=== PATIENT | male | born 1955 | race Caucasian/White ===

== ENCOUNTER 2018-03-16 10:23 | Observation (INO) ==
[2018-03-16] MEDS ORDERED: Sod Chloride 0.9% Inj 1,000 ML IV.SIG ONE ×2 (11:00→12:07)
--- NOTE | 2018-03-16 11:34 | ED ---
HPI General Chief complaint: Nausea/Vomiting/Diarrhea Stated complaint: N/V/weakness Time Seen by Provider: 03/16/18 10:59 Source: patient Mode of arrival: EMS Limitations: no limitations History of Present Illness HPI Narrative: 62-year-old male presents the ED for evaluation of approximate 10 -hour history of acute nausea and vomiting. Patient states that he went to bed feeling well, woke up around 5 AM with multiple episodes of nonbloody vomiting. He endorses 1 episode of watery diarrhea. He states that he currently feels a little dizzy. He denies headache, fever, chills, chest pain, palpitations, shortness of breath, abdominal pain, dysuria, hematuria, back pain. He denies sick contacts. He states he is otherwise healthy, takes no daily medications. He denies alcohol use or cigarette smoking. He endorses smoking marijuana daily for 30 years. Related Data Home Medications Medication Instructions Recorded Confirmed No Known Home Medications 03/16/18 03/16/18 Previous Rx's Medication Instructions Recorded ondansetron [Zofran ODT] 4 mg PO Q8H 2 Days #6 tab 03/16/18 Allergies Allergy/AdvReac Type Severity Reaction Status Date / Time penicillin G Allergy Severe unknown Verified 03/16/18 10:49 aspirin AdvReac Severe Gastrointestinal Verified 03/16/18 10:49 Upset SHELLFISH Allergy Unknown FAMILY Uncoded 07/28/05 12:30 ALLERGY Review of Systems ROS: all other systems reviewed are negative PMFSH Medical History Medical History Broken back (Acute) Hemorrhoid (Acute) Kidney stones (Acute) Surgical History Surgical History History of lithotripsy (Acute) Social History Social History Substance History: No History of Abuse Smoking Status: Former smoker How Often Do You Have a Drink Containing Alcohol: Never Recent Travel in [place] within the Last 8 Weeks: No Recent Out of Country Travel within the Last 8 Weeks: No Substance Abuse Detail Marijuana: Substance Use Status: Active Route Used Substance Abuse: Inhalation Immunization History Tetanus Immunization: Unsure Exam Narrative Exam Narrative: GENERAL: Well-nourished, well-developed white male in no acute distress. SKIN: Focused skin assessment warm/dry. HEAD: Atraumatic. Normocephalic. EYES: Pupils equal and round. No scleral icterus. No injection or drainage. ENT: No nasal bleeding or discharge. Mucous membranes pink and moist. NECK: Trachea midline. No JVD. CARDIOVASCULAR: Regular rate and rhythm. No murmur appreciated. RESPIRATORY: No accessory muscle use. Clear to auscultation. Breath sounds equal bilaterally. GASTROINTESTINAL: Abdomen soft, non-tender, nondistended. Hepatic and splenic margins not palpable. MUSCULOSKELETAL: No obvious deformities. No clubbing. No cyanosis. No edema. NEUROLOGICAL: Awake and alert. No obvious cranial nerve deficits. Motor grossly within normal limits. Normal speech. PSYCHIATRIC: Appropriate mood and affect; insight and judgment normal. Course Initial Documented Vital Signs Temperature 98.6 F 03/16/18 10:49 Pulse Rate 68 03/16/18 10:49 Respiratory Rate 17 03/16/18 10:49 Blood Pressure 130/68 03/16/18 10:49 Pulse Oximetry 98 03/16/18 10:49 Last Documented Vital Signs Temperature 98.6 F 03/16/18 10:49 Pulse Rate 63 03/16/18 14:31 Respiratory Rate 12 03/16/18 14:31 Blood Pressure 133/70 03/16/18 14:31 Pulse Oximetry 100 03/16/18 14:31 Medical Decision Making MDM Narrative Medical decision making narrative: 62-year-old male presents the ED for evaluation of acute onset nausea and vomiting starting at 5 AM today. Patient states that he was feeling well before onset of these symptoms. Denies sick contacts. Afebrile, vital stable on arrival. Physical exam unremarkable. Patient was administered a liter normal saline, a dose of Zofran IV. Of note he was administered Zofran in route by EMS. On recheck patient continues to complain of nausea and vomiting. He was administered IV Compazine, p.o. Benadryl. Lab work without acute abnormalities. Patient was administered a second liter normal saline. Nausea and vomiting continues. He was administered 1 mg Ativan. Still no improvement of his nausea and vomiting. Plan to observe for intractable nausea and vomiting, possibly caused by cannabinoid hyperemesis. Patient agreeable to the plan. I spoke with Dr. Tucker who agrees to accept the patient to the medicine service. Please see medicine notes for disposition. Medical Screen Exam Complete: Yes Emergency Medical Condition: Yes Differential Diagnosis Differential Diagnosis: Food poisoning versus cannabinoid hyperemesis versus gastritis versus metabolic derangement versus dehydration versus other Lab Data Result diagrams: 03/16/18 11:05 03/16/18 11:05 Lab Results 03/16/18 03/16/18 03/16/18 Range/Units 11:05 11:05 14:24 WBC 7.2 (4.0-11.0) th/mm3 RBC 4.49 L (4.50-5.90) mil/mm3 Hgb 14.3 (13.0-17.0) gm/dL Hct 42.5 (39.0-51.0) % MCV 94.8 (80.0-100.0) fL MCH 31.9 (27.0-34.0) pg MCHC 33.6 (32.0-36.0) % RDW 13.6 (11.6-17.2) % Plt Count 269 (150-450) th/mm3 MPV 8.1 (7.0-11.0) fL Neut % (Auto) 86.2 H (16.0-70.0) % Lymph % (Auto) 9.8 (9.0-44.0) % Stokes % (Auto) 3.8 (0.0-8.0) % Eos % (Auto) 0.0 (0.0-4.0) % Baso % (Auto) 0.2 (0.0-2.0) % Neut # (Auto) 6.2 (1.8-7.7) th/mm3 Lymph # (Auto) 0.7 L (1.0-4.8) th/mm3 Stokes # (Auto) 0.3 (0.0-0.9) th/mm3 Eos # (Auto) 0.0 (0.0-0.4) th/mm3 Baso # (Auto) 0.0 (0.0-0.2) th/mm3 WBC Differential . Differential Comment Auto diff final Sodium 142 (136-145) meq/L Potassium 3.8 (3.5-5.1) meq/L Chloride 107 (98-107) meq/L Carbon Dioxide 27.0 (21.0-32.0) meq/L Anion Gap 8 (5-15) meq/L BUN 11 (7-18) mg/dL Creatinine 1.09 (0.60-1.30) mg/dL Estimated GFR 68 L (>89) mL/min Random Glucose 114 H (74-106) mg/dL Calcium 8.3 L (8.5-10.1) mg/dL Magnesium 2.0 (1.5-2.5) mg/dL Total Bilirubin 0.5 (0.2-1.0) mg/dL AST 19 (15-37) U/L ALT 15 (12-78) U/L Alkaline Phosphatase 61 (45-117) U/L Total Protein 7.1 (6.4-8.2) g/dL Albumin 3.4 (3.4-5.0) g/dL Lipase 194 (73-393) U/L Urine Color Yellow (Yellw/Straw) Urine Clarity Hazy H (Clear) Urine pH 8.0 (5.0-8.5) Ur Specific [place] 1.008 (1.002-1.035) Urine Protein Negative (Neg-Trace) mg/dL Urine Glucose (UA) Negative (Negative) mg/dL Urine Ketones Trace H (Negative) mg/dL Urine Occult Blood Small H (Negative) Urine Nitrate Negative (Negative) Urine Bilirubin Negative (Negative) Urine Urobilinogen Less than 2 (Less than 2) mg/dL Ur Leukocyte Esterase Negative (Negative) Urine RBC 2 (0-3) /hpf Urine WBC 2 (0-5) /hpf Ur Squamous Epith Cells <1 (0-5) /hpf Micro UA Comment Culture not ind Ur Microscopic Review Not Reportable Urine Culture Comments Culture not ind Serum Alcohol Less than 3 (0-5) mg/dL Discharge Plan Discharge Disposition Patient Disposition: 30 Still Patient Discharge Condition Condition: Stable Physicians Team ED Provider: Nazario Wu ED Midlevel Provider: Clarisa Bass Primary Care Provider: Primary Care Xiao Block Rxs /Orders / Referrals /Forms Prescriptions: New ondansetron [Zofran ODT] 4 mg tablet,disintegrating 4 mg PO Q8H 2 Days Qty: 6 RF: 0 No Action No Known Home Medications RF: 0 Referrals: [facility] [Outside] - Call for Appointment Status ED Status: Admitted Observation Patient
[2018-03-16 11:47] LABS: Baso % (Auto) 0.2 % (0.0-2.0); Hematocrit 42.5 % (39.0-51.0); Hemoglobin 14.3 gm/dL (13.0-17.0); Lymph # (Auto) 0.7 th/mm3 (1.0-4.8); Lymph % (Auto) 9.8 % (9.0-44.0); Mean Corpuscular HGB Conc 33.6 % (32.0-36.0); Mean Corpuscular Hemoglobin 31.9 pg (27.0-34.0); Mean Corpuscular Volume 94.8 fL (80.0-100.0); Mean Platelet Volume 8.1 fL (7.0-11.0); Mono # (Auto) 0.3 th/mm3 (0.0-0.9); Mono % (Auto) 3.8 % (0.0-8.0); Neut # (Auto) 6.2 th/mm3 (1.8-7.7); Neut % (Auto) 86.2 % (16.0-70.0); Platelet Count 269 th/mm3 (150-450); Red Blood Count 4.49 mil/mm3 (4.50-5.90); Red Cell Distribution Width 13.6 % (11.6-17.2); White Blood Count 7.2 th/mm3 (4.0-11.0)
[2018-03-16 11:58] LABS: Alanine Aminotransferase 15 U/L (12-78)
[2018-03-16 12:00] LABS: Alkaline Phosphatase 61 U/L (45-117); Total Protein 7.1 g/dL (6.4-8.2)
[2018-03-16 12:01] LABS: Albumin 3.4 g/dL (3.4-5.0); Anion Gap 8 meq/L (5-15); Aspartate Aminotransferase 19 U/L (15-37); Blood Urea Nitrogen 11 mg/dL (7-18); Calcium 8.3 mg/dL (8.5-10.1); Chloride 107 meq/L (98-107); Glomerular Filtration Rate 68 mL/min (>89); Glucose,Random 114 mg/dL (74-106); Lipase 194 U/L (73-393); Potassium 3.8 meq/L (3.5-5.1); Sodium 142 meq/L (136-145)
[2018-03-16 15:06] LABS: Bilirubin,Urine Negative (Negative); Clarity,Urine Hazy (Clear); Color,Urine Yellow (Yellw/Straw); Glucose,Urine (UA) Negative (Negative); Leukocyte Esterase,Urine Negative (Negative); Nitrite,Urine Negative (Negative); Specific Gravity,Urine 1.008 (1.002-1.035); Squamous Epithelial Cell,Urine <1 /hpf (0-5)
--- NOTE | 2018-03-16 15:39 | P.HPFP ---
History of Present Illness Primary Care Physician: No Primary Care Physician <Alexandro Krause - 03/17/18 13:49> No Primary Care Physician <Vandaan Tucker - 03/16/18 15:39> Chief Complaint: "I'm nauseous" <Vandana Tucker - 03/16/18 16:55> History of Present Illness: 62 y/o M presenting w/intractable nausea and vomiting. Patient states that this AM, he awoke w/dizziness upon standing. Denies pre- syncope symptoms or falls. States that he then started vomiting and that he vomited about 15 times today. Last meal was the night before. States that he ate a restaurant, had a sabillon and tomato sandwich. When out with other people who subsequently did not become ill like he did. States that he had a brief episode of diarrhea. Denies blood in his vomit or stools. Denies fevers or chills. No weight loss, change in appetite, vision changes, or difficulty swallowing.. States that he currently does have a headache that is on the top and back part of his head. Denies photosensitivity. States that he still has dizziness which appears when he changes positions. Currently not nauseous, reports that this resolved after last dose of medication (IV Benadryl). No recent illnesses. Does not follow-up with the P regularly due to insurance reasons. Has no medical conditions that he is aware of. Has had operations/surgery in the past. Does not take any medications. Denies family history of any medical problems. Denies smoking or alcohol use but does smoke marijuana daily. <Vandana Tucker - 03/16/18 16:55> - Diagnosis (1) Intractable nausea and vomiting (2) Headache (3) Dizziness <Vandana Tucker 03/16/18 16:55> Review of Systems Constitutional: Denies fatigue, Denies weakness <Vandana Tucker 03/16/18 16: 55> Eyes: Denies blurry vision, Denies loss of vision <Vandana Tucker 03/16/18 16 :55> Ears, Nose, Mouth, and Throat: Reports neck lump (Denies tenderness.), Denies mouth pain, Denies tongue swelling <Vandana Tucker 03/16/18 16:55> Cardiovascular: Denies chest pain, Denies leg pain with activity, Denies shortness of breath <[facility] 03/16/18 16:55> Respiratory: Denies change in phlegm color, Denies cough, Denies wheezing < [facility] 03/16/18 16:55> Gastrointestinal: Denies abdominal pain, Denies cramping, Denies loose stools [facility]> Genitourinary: Denies urinary frequency, Denies urinary hesitancy <[facility] Vandana 03/16/18 16:55> Musculoskeletal: Denies abnormal walking, Denies joint pain <[facility] 03/16/18 16:55> Neurologic: Denies confusion, Denies fainting <[facility] 03/16/18 16:55> Endocrine: Denies cold intolerance, Denies excessive sweating, Denies rapid, pounding, or irregular heartbeat <[facility] 03/16/18 16:55> PMF - History History Provided By: Patient, Medical Record, Body Presser / EMT <Vandana Tucker 03/16/18 15:39> - Medical History Medical History: Medical History (Last Reviewed 03/16/18 @ 11:59 by NAKIA Camargo) Broken back Hemorrhoid Kidney stones <Alexandro Krause - 03/17/18 13:49> Medical History (Last Reviewed 03/16/18 @ 11:59 by NAKIA Camargo) Broken back Hemorrhoid Kidney stones <Vandana Tucker 03/16/18 15:39> - Surgical History Surgical History: Surgical History (Last Reviewed 03/16/18 @ 11:59 by NAKIA Camargo) History of lithotripsy <Alexandro Krause - 03/17/18 13:49> Surgical History (Last Reviewed 03/16/18 @ 11:59 by NAKIA Camargo) History of lithotripsy <Vandana Tucker 03/16/18 15:39> - Tobacco History Smoking Status: Former smoker <Vandana Tucker 03/16/18 15:39> - Alcohol History How Often Do You Have a Drink Containing Alcohol: Never <Vandana Tucker - 03/16 15:39> - Substance Use History Substance History: No History of Abuse <Vandana Tucker - 03/16/18 15:39> - Substance Use Type Marijuana Status: Active <Vandana Tucker N - 03/16/18 15:39> Route Used: Inhalation <Vandana Tucker - 03/16/18 15:39> - Travel History Recent Travel in the [facility] Within the Last 8 Weeks: No <Vandana Tucker - 15:39> Recent Travel Out of the Country Within the Last 8 Weeks: No <Vandana Tucker - 03/16/18 15:39> - Immunization History Tetanus Immunization: Unsure <Vandana Tucker - 03/16/18 15:39> Medications and Allergies Allergies Allergy/AdvReac Type Severity Reaction Status Date / Time penicillin G Allergy Severe unknown Verified 03/16/18 10:49 aspirin AdvReac Severe Gastrointestinal Verified 03/16/18 10:49 Upset SHELLFISH Allergy Unknown FAMILY Uncoded 07/28/05 12:30 ALLERGY <Alexandro Krause - 03/17/18 13:49> Home Medications Medication Instructions Recorded Confirmed Type No Known Home Medications 03/16/18 03/16/18 History <Alexandro Krause - 03/17/18 13:49> Active Medications: Active Medications Acetaminophen (Tylenol) 650 mg PO Q4H PRN PRN Reason: PAIN 1-10 OR TEMP > 100.4 F Al Hydroxide/Mg Hydroxide (Milk Of Magnesia Liq) 30 ml PO Q12H PRN PRN Reason: Mild Constipation Bisacodyl (Dulcolax Supp) 10 mg RECTAL DAILY PRN PRN Reason: SEVERE CONSITIPATION Diphenhydramine HCl (Benadryl Inj) 25 mg IV.PUSH Q4H PRN PRN Reason: NAUSEA Lactulose (Lactulose Liq) 30 ml PO DAILY PRN PRN Reason: SEVERE CONSITIPATION Metoclopramide HCl (Reglan Inj) 5 mg IV.PUSH Q6HR PRN; Protocol PRN Reason: NAUSEA OR VOMITING Ondansetron HCl (Zofran Inj) 4 mg IV.PUSH Q6H PRN PRN Reason: NAUSEA OR VOMITING Sennosides (Senokot) 17.2 mg PO Q12H PRN PRN Reason: Moderate Constipation Sodium Chloride (Ns Flush) 2 ml IV.FLUSH PRN PRN PRN Reason: FLUSH AFTER USING IV ACCESS <Alexandro Krause - 03/17/18 13:49> Active Medications Sodium Chloride (Ns Flush) 2 ml IV.FLUSH PRN PRN PRN Reason: FLUSH AFTER USING IV ACCESS <Vandana Tucker - 03/16/18 15:39> Exam Vital signs: Vital Signs 03/16/18 14:31 03/16/18 16:50 03/16/18 20:00 Temperature 97.8 F 98.2 F Pulse Rate 63 72 76 Respiratory Rate 12 20 16 Blood Pressure 133/70 123/64 115/57 L Pulse Oximetry 100 97 100 03/16/18 23:47 03/17/18 04:00 03/17/18 08:00 Temperature 98.0 F 98.5 F 97.8 F Pulse Rate 77 84 77 Respiratory Rate 20 20 16 Blood Pressure 116/61 122/65 123/60 Pulse Oximetry 97 97 97 03/17/18 12:00 Temperature 97.5 F L Pulse Rate 65 Respiratory Rate 16 Blood Pressure 125/67 Pulse Oximetry 98 Intake & Output 03/16/18 03/17/18 03/17/18 18:59 06:59 18:59 Intake Total 1999 1000 / 1000 675 / 675 Balance 1999 1000 / 1000 675 / 675 Weight 61.235 kg Intake: IV 1999 1000 / 1000 675 / 675 LR 1000 mL Inj 1,000 ML @ 100 1000 / 1000 675 / 675 mls/hr IV.CONT .Q10H JANAE Rx#: [id number] NS Inj 1,000 ML @ Wide Open IV. 1999 SIG BOLUS ONE Rx#:[id number] <Alexandro Krause - 03/17/18 13:49> Vital Signs 03/16/18 10:49 03/16/18 14:31 Temperature 98.6 F Pulse Rate 68 63 Respiratory Rate 17 12 Blood Pressure 130/68 133/70 Pulse Oximetry 98 100 Intake & Output 03/15/18 03/16/18 03/16/18 18:59 06:59 18:59 Intake Total 1999 Balance 1999 Weight 61.235 kg Intake: IV 1999 NS Inj 1,000 ML @ Wide Open IV. 1999 SIG BOLUS ONE Rx#:[id number] <Vandana Tucker N - 03/16/18 15:39> Narrative: GENERAL: Thin, cachectic older male lying in bed looking fatigued. Is pale and disheveled. SKIN: Warm and dry. Enlarged lymph node about 1 inch in diameter at the right upper neck. HEAD: Atraumatic. Normocephalic. EYES: Pupils equal and round. ENT: No nasal bleeding or discharge. Mucous membranes dry. NECK: Trachea midline. No JVD. CARDIOVASCULAR: Regular rate and rhythm. RESPIRATORY: No accessory muscle use. Clear to auscultation. Breath sounds equal bilaterally. GASTROINTESTINAL: Abdomen soft, non-tender, nondistended. Hepatic and splenic margins not palpable. MUSCULOSKELETAL: Extremities without clubbing, cyanosis, or edema. NEUROLOGICAL: Awake and alert. No obvious cranial nerve deficits. Motor grossly within normal limits. Five out of 5 muscle strength in the arms and legs. Normal speech. PSYCHIATRIC: Appropriate mood and affect; insight and judgment normal. <AriellaVandana david N - 03/16/18 16:55> Results - Labs Result diagrams: 03/17/18 06:26 03/17/18 06:26 <Alexandro Krause - 03/17/18 13:49> Abnormal lab results 03/16/18 03/16/18 03/17/18 Range/Units 11:05 14:24 06:26 RBC 3.95 L (4.50-5.90) mil/mm3 Hgb 12.7 L (13.0-17.0) gm/dL Hct 37.5 L (39.0-51.0) % Sodium (136-145) meq/L Potassium (3.5-5.1) meq/L Chloride (98-107) meq/L Estimated GFR (>89) mL/min Calcium (8.5-10.1) mg/dL AST (15-37) U/L ALT (12-78) U/L Total Protein (6.4-8.2) g/dL Albumin (3.4-5.0) g/dL Urine Clarity Hazy H (Clear) Urine Ketones Trace H (Negative) mg/dL Urine Occult Blood Small H (Negative) Acetaminophen Less than 2.0 L (10.0-30.0) mcg/mL 03/17/18 Range/Units 06:26 RBC (4.50-5.90) mil/mm3 Hgb (13.0-17.0) gm/dL Hct (39.0-51.0) % Sodium 147 H (136-145) meq/L Potassium 3.4 L (3.5-5.1) meq/L Chloride 112 H (98-107) meq/L Estimated GFR 84 L (>89) mL/min Calcium 8.2 L (8.5-10.1) mg/dL AST 13 L (15-37) U/L ALT 11 L (12-78) U/L Total Protein 5.9 L D (6.4-8.2) g/dL Albumin 2.9 L (3.4-5.0) g/dL Urine Clarity (Clear) Urine Ketones (Negative) mg/dL Urine Occult Blood (Negative) Acetaminophen (10.0-30.0) mcg/mL Short CBC 03/17/18 Range/Units 06:26 WBC 7.8 (4.0-11.0) th/mm3 Hgb 12.7 L (13.0-17.0) gm/dL Hct 37.5 L (39.0-51.0) % Plt Count 240 (150-450) th/mm3 BMP 03/17/18 06:26 Sodium 147 H Potassium 3.4 L Chloride 112 H Carbon Dioxide 28.0 BUN 11 Creatinine 0.91 Calcium 8.2 L Liver Function 03/17/18 Range/Units 06:26 Total Bilirubin 0.4 (0.2-1.0) mg/dL AST 13 L (15-37) U/L ALT 11 L (12-78) U/L Alkaline Phosphatase 49 (45-117) U/L Albumin 2.9 L (3.4-5.0) g/dL Urine 03/16/18 Range/Units 14:24 Urine Color Yellow (Yellw/Straw) Urine Clarity Hazy H (Clear) Urine pH 8.0 (5.0-8.5) Ur Specific [place] 1.008 (1.002-1.035) Urine Protein Negative (Neg-Trace) mg/dL Urine Glucose (UA) Negative (Negative) mg/dL <Alexandro Krause - 03/17/18 13:49> Abnormal lab results 03/16/18 03/16/18 03/16/18 Range/Units 11:05 11:05 14:24 RBC 4.49 L (4.50-5.90) mil/mm3 Neut % (Auto) 86.2 H (16.0-70.0) % Lymph # (Auto) 0.7 L (1.0-4.8) th/mm3 Estimated GFR 68 L (>89) mL/min Random Glucose 114 H (74-106) mg/dL Calcium 8.3 L (8.5-10.1) mg/dL Urine Clarity Hazy H (Clear) Urine Ketones Trace H (Negative) mg/dL Urine Occult Blood Small H (Negative) Short CBC 03/16/18 Range/Units 11:05 WBC 7.2 (4.0-11.0) th/mm3 Hgb 14.3 (13.0-17.0) gm/dL Hct 42.5 (39.0-51.0) % Plt Count 269 (150-450) th/mm3 BMP 03/16/18 11:05 Sodium 142 Potassium 3.8 Chloride 107 Carbon Dioxide 27.0 BUN 11 Creatinine 1.09 Calcium 8.3 L Liver Function 03/16/18 Range/Units 11:05 Total Bilirubin 0.5 (0.2-1.0) mg/dL AST 19 (15-37) U/L ALT 15 (12-78) U/L Alkaline Phosphatase 61 (45-117) U/L Albumin 3.4 (3.4-5.0) g/dL Urine 03/16/18 Range/Units 14:24 Urine Color Yellow (Yellw/Straw) Urine Clarity Hazy H (Clear) Urine pH 8.0 (5.0-8.5) Ur Specific [place] 1.008 (1.002-1.035) Urine Protein Negative (Neg-Trace) mg/dL Urine Glucose (UA) Negative (Negative) mg/dL <Vandana Tucker - 03/16/18 15:39> - Imaging Impressions Head CT 03/16/18 00:00 CONCLUSION: 1. Negative noncontrast head CT. . <Alexandro Krause - 03/17/18 13:49> Caprini VTE Risk Assessment Caprini VTE Risk Assessment: Moderate/High Risk (score >= 2) <Vandana Tucker - 03/16/18 16:55> Vaughni Risk Assessment Model: Point Value = 1 Point Value = 2 Point Value = 3 Point Value = 5 Age 41-60 Minor surgery BMI > 25 kg/m2 Swollen legs Varicose veins or History of unexplained or recurrent spontaneous Oral contraceptives or hormone replacement Sepsis (< 1 month) Serious lung disease, including pneumonia (< 1 month) Abnormal pulmonary function Acute myocardial infarction Congestive heart failure (< 1 month) History of inflammatory bowel disease Medical patient at bed rest Age 61-74 Arthroscopic surgery Major open surgery (> 45 min) Laparoscopic surgery (> 45 min) Malignancy Confined to bed (> 72 hours) Immobilizing plaster cast Central venous access Age >= 75 History of VTE Family history of VTE Factor V Leiden Prothrombin [id number] Lupus anticoagulant Anticardiolipin antibodies Elevated serum homocysteine Heparin-induced thrombocytopenia Other congenital or acquired thrombophilia Stroke (< 1 month) Elective arthroplasty Hip, pelvis, or leg fracture Acute spinal cord injury (< 1 month) <Alexandro Krause - 03/17/18 13:49> Point Value = 1 Point Value = 2 Point Value = 3 Point Value = 5 Age 41-60 Minor surgery BMI > 25 kg/m2 Swollen legs Varicose veins or History of unexplained or recurrent spontaneous Oral contraceptives or hormone replacement Sepsis (< 1 month) Serious lung disease, including pneumonia (< 1 month) Abnormal pulmonary function Acute myocardial infarction Congestive heart failure (< 1 month) History of inflammatory bowel disease Medical patient at bed rest Age 61-74 Arthroscopic surgery Major open surgery (> 45 min) Laparoscopic surgery (> 45 min) Malignancy Confined to bed (> 72 hours) Immobilizing plaster cast Central venous access Age >= 75 History of VTE Family history of VTE Factor V Leiden Prothrombin [id number] Lupus anticoagulant Anticardiolipin antibodies Elevated serum homocysteine Heparin-induced thrombocytopenia Other congenital or acquired thrombophilia Stroke (< 1 month) Elective arthroplasty Hip, pelvis, or leg fracture Acute spinal cord injury (< 1 month) <Vandana Tucker - 03/16/18 15:39> Prophylaxis Regimen: Total Risk Factor Score Risk Level Prophylaxis Regimen 0-1 Low Early ambulation 2 Moderate Order ONE of the following: *Sequential Compression Device (SCD) *Heparin 5000 units SQ BID 3-4 Higher Order ONE of the following medications: *Heparin 5000 units SQ TID *Enoxaparin/Lovenox 40 mg SQ daily (WT < 150 kg, CrCl > 30 mL/min) *Enoxaparin/Lovenox 30 mg SQ daily (WT < 150 kg, CrCl > 10-29 mL/min) *Enoxaparin/Lovenox 30 mg SQ BID (WT < 150 kg, CrCl > 30 mL/min) AND/OR *Sequential Compression Device (SCD) 5 or more Highest Order ONE of the following medications: *Heparin 5000 units SQ TID (Preferred with Epidurals) *Enoxaparin/Lovenox 40 mg SQ daily (WT < 150 kg, CrCl > 30 mL/min) *Enoxaparin/Lovenox 30 mg SQ daily (WT < 150 kg, CrCl > 10-29 mL/min) *Enoxaparin/Lovenox 30 mg SQ BID (WT < 150 kg, CrCl > 30 mL/min) AND *Sequential Compression Device (SCD) <Alexandro Krause - 03/17/18 13:49> Total Risk Factor Score Risk Level Prophylaxis Regimen 0-1 Low Early ambulation 2 Moderate Order ONE of the following: *Sequential Compression Device (SCD) *Heparin 5000 units SQ BID 3-4 Higher Order ONE of the following medications: *Heparin 5000 units SQ TID *Enoxaparin/Lovenox 40 mg SQ daily (WT < 150 kg, CrCl > 30 mL/min) *Enoxaparin/Lovenox 30 mg SQ daily (WT < 150 kg, CrCl > 10-29 mL/min) *Enoxaparin/Lovenox 30 mg SQ BID (WT < 150 kg, CrCl > 30 mL/min) AND/OR *Sequential Compression Device (SCD) 5 or more Highest Order ONE of the following medications: *Heparin 5000 units SQ TID (Preferred with Epidurals) *Enoxaparin/Lovenox 40 mg SQ daily (WT < 150 kg, CrCl > 30 mL/min) *Enoxaparin/Lovenox 30 mg SQ daily (WT < 150 kg, CrCl > 10-29 mL/min) *Enoxaparin/Lovenox 30 mg SQ BID (WT < 150 kg, CrCl > 30 mL/min) AND *Sequential Compression Device (SCD) <Vandana Tucker - 03/16/18 15:39> Assessment and Plan - Assessment (1) Intractable nausea and vomiting Code(s): R11.2 - Nausea with vomiting, unspecified Status: Acute Plan: Differential: gastroenteritis v Cyclical vomiting from marijuana use versus tumor/cancer v intracranial bleed versus gastroparesis versus pancreatitis IV fluids at maintenance rate IV Zofran, IV Reglan, and IV Benadryl for nausea. May be administered in this order for vomiting that continues to be intractable. Patient seems to be responding to IV Benadryl as he states that he feels better since his last medication administration of that. EKG will be performed to rule out prolonged QT We will perform CT of the head to rule out intracranial abnormality Order lipase and A1c Monitor clinically, recheck in the morning (2) Headache Code(s): R51 - Headache Status: Acute Plan: See above plan Tylenol as needed for pain (3) Dizziness <Vandana Tucker - 03/16/18 16:55> - Assessment and Plan Fluids: Maintenance Electrolytes: as needed Nutrition: NPO. Give diet once patient feels ready DVT prophy: SCDs, caprini score is moderate GI prophy: None <Vandana Tucker - 03/16/18 16:55> - Attending Attestation See the residents documentation for details. I saw and evaluated the patient regarding the hayward portions of this evaluation and agree with the residents findings and plans as written. Parts of this note were created using [employer] voice recognition software program. While efforts were made to correct any mistakes made by this software, some mistakes, errors, and omissions may remain in the final note that were not caught when the note was originally created. Plan of care was discussed and agreed upon with the patient as specifically documented in the above note. An opportunity to ask questions with explanation was provided. Patient voiced understanding on all information reviewed and discussed. <Alexandro Krause - 03/17/18 13:49>
[2018-03-16] MEDS ORDERED: Acetaminophen 325 MG Tablet PO PRN (16:25)
[2018-03-16] MEDS ORDERED: Bisacodyl 10 MG Supp RECTAL PRN (16:25)
--- NOTE | 2018-03-16 19:09 | CT ---
EXAM DATE: 03/16/2018 7:05 PM EDT AGE/SEX: 62 years / Male INDICATIONS: Dizziness CLINICAL DATA: This is the patient's initial encounter. Patient reports that signs and symptoms have been present for 1 day and indicates a pain score of 2/10. MEDICAL/SURGICAL HISTORY: None. None. RADIATION DOSE: 66.38 CTDI (mGy) COMPARISON: No prior exams available for comparison. TECHNIQUE: CT of the head without contrast. Using automated exposure control and adjustment of the mA and/or kV according to patient size, radiation dose was kept as low as reasonably achievable to ob tain optimal diagnostic quality images. DICOM format image data is available electronically for revi ew and comparison. FINDINGS: Cerebrum: The ventricles are normal for age. No evidence of midline shift, mass lesion, hemorrhage or acute infarction. No extraaxial fluid collections are seen. Posterior Fossa: The cerebellum and brainstem are intact. The 4th ventricle is midline. The cerebe llopontine angle is unremarkable. Extracranial: The visualized portion of the orbits is intact. Skull: The calvaria is intact. No evidence of skull fracture. CONCLUSION: 1. Negative noncontrast head CT. . Electronically signed by: Gato Lopez MD 03/16/2018 7:08 PM EDT
[2018-03-17 06:50] LABS: Baso % (Auto) 0.3 % (0.0-2.0); Eos % (Auto) 0.3 % (0.0-4.0); Hematocrit 37.5 % (39.0-51.0); Hemoglobin 12.7 gm/dL (13.0-17.0); Lymph # (Auto) 1.9 th/mm3 (1.0-4.8); Lymph % (Auto) 23.7 % (9.0-44.0); Mean Corpuscular HGB Conc 33.8 % (32.0-36.0); Mean Corpuscular Hemoglobin 32.1 pg (27.0-34.0); Mean Corpuscular Volume 94.9 fL (80.0-100.0); Mean Platelet Volume 7.7 fL (7.0-11.0); Mono # (Auto) 0.5 th/mm3 (0.0-0.9); Mono % (Auto) 6.3 % (0.0-8.0); Neut # (Auto) 5.4 th/mm3 (1.8-7.7); Neut % (Auto) 69.4 % (16.0-70.0); Platelet Count 240 th/mm3 (150-450); Red Blood Count 3.95 mil/mm3 (4.50-5.90); Red Cell Distribution Width 13.7 % (11.6-17.2); White Blood Count 7.8 th/mm3 (4.0-11.0)
[2018-03-17 07:09] LABS: Albumin 2.9 g/dL (3.4-5.0); Anion Gap 7 meq/L (5-15); Aspartate Aminotransferase 13 U/L (15-37); Blood Urea Nitrogen 11 mg/dL (7-18); Calcium 8.2 mg/dL (8.5-10.1); Chloride 112 meq/L (98-107); Glomerular Filtration Rate 84 mL/min (>89); Glucose,Random 88 mg/dL (74-106); Potassium 3.4 meq/L (3.5-5.1); Sodium 147 meq/L (136-145)
[2018-03-17 07:12] LABS: Alanine Aminotransferase 11 U/L (12-78); Alkaline Phosphatase 49 U/L (45-117); Total Protein 5.9 g/dL (6.4-8.2)
[2018-03-17 11:27] LABS: Hemoglobin A1c 5.3 % (4.3-6.0)
--- NOTE | 2018-03-17 12:12 | P.PNFP ---
Subjective Interval history: Vitals stable overnight. No episodes of nausea, feels ok to eat this morning. Feels some dizziness when he sits up in bed, has not walked around yet. Lingering headache is still there, but no new changes. <Vandana Tucker - 03/17/18 12:12> Results - Labs Result diagrams: 03/17/18 06:26 03/17/18 06:26 <Alexandro Krause - 03/17/18 14:05> Abnormal lab results 03/16/18 03/16/18 03/17/18 Range/Units 11:05 14:24 06:26 RBC 3.95 L (4.50-5.90) mil/mm3 Hgb 12.7 L (13.0-17.0) gm/dL Hct 37.5 L (39.0-51.0) % Sodium (136-145) meq/L Potassium (3.5-5.1) meq/L Chloride (98-107) meq/L Estimated GFR (>89) mL/min Calcium (8.5-10.1) mg/dL AST (15-37) U/L ALT (12-78) U/L Total Protein (6.4-8.2) g/dL Albumin (3.4-5.0) g/dL Urine Clarity Hazy H (Clear) Urine Ketones Trace H (Negative) mg/dL Urine Occult Blood Small H (Negative) Acetaminophen Less than 2.0 L (10.0-30.0) mcg/mL 03/17/18 Range/Units 06:26 RBC (4.50-5.90) mil/mm3 Hgb (13.0-17.0) gm/dL Hct (39.0-51.0) % Sodium 147 H (136-145) meq/L Potassium 3.4 L (3.5-5.1) meq/L Chloride 112 H (98-107) meq/L Estimated GFR 84 L (>89) mL/min Calcium 8.2 L (8.5-10.1) mg/dL AST 13 L (15-37) U/L ALT 11 L (12-78) U/L Total Protein 5.9 L D (6.4-8.2) g/dL Albumin 2.9 L (3.4-5.0) g/dL Urine Clarity (Clear) Urine Ketones (Negative) mg/dL Urine Occult Blood (Negative) Acetaminophen (10.0-30.0) mcg/mL Short CBC 03/17/18 Range/Units 06:26 WBC 7.8 (4.0-11.0) th/mm3 Hgb 12.7 L (13.0-17.0) gm/dL Hct 37.5 L (39.0-51.0) % Plt Count 240 (150-450) th/mm3 BMP 03/17/18 06:26 Sodium 147 H Potassium 3.4 L Chloride 112 H Carbon Dioxide 28.0 BUN 11 Creatinine 0.91 Calcium 8.2 L Liver Function 03/17/18 Range/Units 06:26 Total Bilirubin 0.4 (0.2-1.0) mg/dL AST 13 L (15-37) U/L ALT 11 L (12-78) U/L Alkaline Phosphatase 49 (45-117) U/L Albumin 2.9 L (3.4-5.0) g/dL Urine 03/16/18 Range/Units 14:24 Urine Color Yellow (Yellw/Straw) Urine Clarity Hazy H (Clear) Urine pH 8.0 (5.0-8.5) Ur Specific [place] 1.008 (1.002-1.035) Urine Protein Negative (Neg-Trace) mg/dL Urine Glucose (UA) Negative (Negative) mg/dL <Alexandro Krause - 03/17/18 14:05> Abnormal lab results 03/16/18 03/16/18 03/17/18 Range/Units 11:05 14:24 06:26 RBC 3.95 L (4.50-5.90) mil/mm3 Hgb 12.7 L (13.0-17.0) gm/dL Hct 37.5 L (39.0-51.0) % Sodium (136-145) meq/L Potassium (3.5-5.1) meq/L Chloride (98-107) meq/L Estimated GFR (>89) mL/min Calcium (8.5-10.1) mg/dL AST (15-37) U/L ALT (12-78) U/L Total Protein (6.4-8.2) g/dL Albumin (3.4-5.0) g/dL Urine Clarity Hazy H (Clear) Urine Ketones Trace H (Negative) mg/dL Urine Occult Blood Small H (Negative) Acetaminophen Less than 2.0 L (10.0-30.0) mcg/mL 03/17/18 Range/Units 06:26 RBC (4.50-5.90) mil/mm3 Hgb (13.0-17.0) gm/dL Hct (39.0-51.0) % Sodium 147 H (136-145) meq/L Potassium 3.4 L (3.5-5.1) meq/L Chloride 112 H (98-107) meq/L Estimated GFR 84 L (>89) mL/min Calcium 8.2 L (8.5-10.1) mg/dL AST 13 L (15-37) U/L ALT 11 L (12-78) U/L Total Protein 5.9 L D (6.4-8.2) g/dL Albumin 2.9 L (3.4-5.0) g/dL Urine Clarity (Clear) Urine Ketones (Negative) mg/dL Urine Occult Blood (Negative) Acetaminophen (10.0-30.0) mcg/mL Short CBC 03/17/18 Range/Units 06:26 WBC 7.8 (4.0-11.0) th/mm3 Hgb 12.7 L (13.0-17.0) gm/dL Hct 37.5 L (39.0-51.0) % Plt Count 240 (150-450) th/mm3 BMP 03/17/18 06:26 Sodium 147 H Potassium 3.4 L Chloride 112 H Carbon Dioxide 28.0 BUN 11 Creatinine 0.91 Calcium 8.2 L Liver Function 03/17/18 Range/Units 06:26 Total Bilirubin 0.4 (0.2-1.0) mg/dL AST 13 L (15-37) U/L ALT 11 L (12-78) U/L Alkaline Phosphatase 49 (45-117) U/L Albumin 2.9 L (3.4-5.0) g/dL Urine 03/16/18 Range/Units 14:24 Urine Color Yellow (Yellw/Straw) Urine Clarity Hazy H (Clear) Urine pH 8.0 (5.0-8.5) Ur Specific [place] 1.008 (1.002-1.035) Urine Protein Negative (Neg-Trace) mg/dL Urine Glucose (UA) Negative (Negative) mg/dL <AriellafrankieJaydenVandana N - 03/17/18 12:12> - Imaging Impressions Head CT 03/16/18 00:00 CONCLUSION: 1. Negative noncontrast head CT. . <Alexandro Krause - 03/17/18 14:05> Impressions Head CT 03/16/18 00:00 CONCLUSION: 1. Negative noncontrast head CT. . <Jayden Tuckeryani Hughes - 03/17/18 12:12> Physical Exam Vital signs: Vital Signs 03/16/18 14:31 03/16/18 16:50 03/16/18 20:00 Temperature 97.8 F 98.2 F Pulse Rate 63 72 76 Respiratory Rate 12 20 16 Blood Pressure 133/70 123/64 115/57 L Pulse Oximetry 100 97 100 03/16/18 23:47 03/17/18 04:00 03/17/18 08:00 Temperature 98.0 F 98.5 F 97.8 F Pulse Rate 77 84 77 Respiratory Rate 20 20 16 Blood Pressure 116/61 122/65 123/60 Pulse Oximetry 97 97 97 03/17/18 12:00 Temperature 97.5 F L Pulse Rate 65 Respiratory Rate 16 Blood Pressure 125/67 Pulse Oximetry 98 Intake & Output 03/16/18 03/17/18 03/17/18 18:59 06:59 18:59 Intake Total 1999 1000 / 1000 675 / 675 Balance 1999 1000 / 1000 675 / 675 Weight 61.235 kg Intake: IV 1999 1000 / 1000 675 / 675 LR 1000 mL Inj 1,000 ML @ 100 1000 / 1000 675 / 675 mls/hr IV.CONT .Q10H JANAE Rx#: [id number] NS Inj 1,000 ML @ Wide Open IV. 1999 SIG BOLUS ONE Rx#:[id number] <Alexandro Krause - 03/17/18 14:05> Vital Signs 03/16/18 14:31 03/16/18 16:50 03/16/18 20:00 Temperature 97.8 F 98.2 F Pulse Rate 63 72 76 Respiratory Rate 12 20 16 Blood Pressure 133/70 123/64 115/57 L Pulse Oximetry 100 97 100 03/16/18 23:47 03/17/18 04:00 03/17/18 08:00 Temperature 98.0 F 98.5 F 97.8 F Pulse Rate 77 84 77 Respiratory Rate 20 20 16 Blood Pressure 116/61 122/65 123/60 Pulse Oximetry 97 97 97 Intake & Output 03/16/18 03/17/18 03/17/18 18:59 06:59 18:59 Intake Total 1999 / 999 675 / 675 Balance 1999 675 / 675 Weight 61.235 kg Intake: IV 1999 / 1000 675 / 675 LR 1000 mL Inj 1,000 ML @ 100 999 / 999 675 / 675 mls/hr IV.CONT .Q10H JANAE Rx#: [id number] NS Inj 1,000 ML @ Wide Open IV. 1999 SIG BOLUS ONE Rx#:[id number] <CaitlinJaydenVandana N - 03/17/18 12:12> Narrative: GENERAL: Thin, cachectic older male lying in bed looking fatigued. Is pale and disheveled. SKIN: Warm and dry. HEAD: Atraumatic. Normocephalic. EYES: Normal EOM ENT: No nasal bleeding or discharge. Mucous membranes dry. NECK: Trachea midline. No JVD. CARDIOVASCULAR: Regular rate and rhythm. RESPIRATORY: No accessory muscle use. Clear to auscultation. Breath sounds equal bilaterally. GASTROINTESTINAL: Abdomen soft, non-tender, nondistended. Hepatic and splenic margins not palpable. MUSCULOSKELETAL: Extremities without clubbing, cyanosis, or edema. NEUROLOGICAL: Awake and alert. No obvious cranial nerve deficits. Motor grossly within normal limits. Five out of 5 muscle strength in the arms and legs. <CaitlinVandana N - 03/17/18 12:12> Assessment and Plan - Assessment (1) Intractable nausea and vomiting Code(s): R11.2 - Nausea with vomiting, unspecified Status: Acute Plan: Improved Differential: gastroenteritis v Cyclical vomiting from marijuana use DC fluids IV Zofran, IV Reglan, and IV Benadryl for nausea PRN (2) Headache Code(s): R51 - Headache Status: Acute Plan: Improved Tylenol as needed for pain (3) Dizziness Code(s): R42 - Dizziness and giddiness Status: Acute Plan: May improve after diet PT eval Orthostatic vitals <Abid,Vandana N - 03/17/18 12:08> - Assessment and Plan Fluids: None Electrolytes: as needed Nutrition: Reg diet DVT prophy: SCDs, caprini score is moderate GI prophy: None <Abid,Vandana N - 03/17/18 12:12> Discharge Planning: Dc today after PT eval and orthostatic vitals <Abid,Vandana N - 03/17/18 12:12> - Attending Attestation See the residents documentation for details. I saw and evaluated the patient regarding the hayward portions of this evaluation and agree with the residents findings and plans as written. Parts of this note were created using [employer] voice recognition software program. While efforts were made to correct any mistakes made by this software, some mistakes, errors, and omissions may remain in the final note that were not caught when the note was originally created. Plan of care was discussed and agreed upon with the patient as specifically documented in the above note. An opportunity to ask questions with explanation was provided. Patient voiced understanding on all information reviewed and discussed. <Alexandro Krause - 03/17/18 14:05>
[2018-03-17 12:19] VITALS: O2SAT 98
--- NOTE | 2018-03-17 14:37 | P.PNADD ---
Addendum to Inpatient Note Reason for Addendum: Additional Documentation Additional information: Just saw patient to [facility] based on PT assessment. Patient states he is just lightheaded but no vertigo, feels better. States nurse walked with him to the bathroom but he walked back on his own. No pre-syncope, no nausea. Wants food ( fruit and mashed potatoes), has not eaten at all today other than 2 crackers. PE: Gen: No distress. Alert, awake, comfortable, sitting up in bed. Neuro: Negative Romberg, no neuro deficits, nystagmus of 3-4 beats when looking to the left. Minimal-none vertically, horizontally, or rightward. Negative head thrust test. No gait abnormalities. A/P: No concern for vestibular neuritis. Plan to DC today after meal. Take PO Zofran for use after discharge as needed in addition to supportive care.
[2018-03-17 16:14] VITALS: BP 155/72; PULSE 63; RESP 20; TEMP 97.7
== END 2018-03-17 16:14 | disposition home or self-care (01) ==
LOC: NEPC 10:23 → NEDA 10:23 → NEPFCDU 16:38
PROVIDERS: ADMIT Family Medicine; ATTEND Family Medicine